=== PATIENT | female | born 1985 | race Caucasian/White ===

== ENCOUNTER 2021-11-24 12:06 | Emergency (ER) | payer OTHER ==
[~2021-11-24] VITALS: Ht 157.4 cm; Wt 60.7 kg
--- NOTE | 2021-11-24 12:18 | ED General ---
General Chief Complaint: Dizziness/Syncope Stated Complaint: DIZZINESS History of Present Illness Date Seen by Provider: Nov 24, 2021 Time Seen by Provider: 12:18 Initial Comments 36-year-old female presents with dizziness. She reports start about an hour hour and a half prior to arrival. She reports that she had sat down just got really dizzy. It gets worse with movement or when she stands. She does not have any nausea or vomiting. She does report that she has had couple days of diarrhea. No cough, sore throat, shortness of breath, fever or chills. She took a COVID test at home that was negative. She denies any fever or chills. She reports her last menstrual period ended about a week ago. Allergies and Home Medications Allergies Coded Allergies: No Known Drug Allergies (Unverified , 11/24/21) Patient Home Medication List Home Medication List Reviewed: Yes Review of Systems Review of Systems Constitutional: No chills; dizziness; No fever, No weakness EENTM: No ear pain Respiratory: No cough, No short of breath Cardiovascular: No chest pain, No palpitations Gastrointestinal: No abdominal pain; diarrhea; No nausea Musculoskeletal: no symptoms reported Skin: no symptoms reported Psychiatric/Neurological: No Symptoms Reported Hematologic/Lymphatic: No Symptoms Reported Physical Exam Vital Signs Vital Signs - First Documented 11/24/21 12:13 Temp 36.7 Pulse 52 Resp 18 B/P (MAP) 94/56 (69) Pulse Ox 100 O2 Delivery Room Air Capillary Refill : Height, Weight, BMI Height: '" Weight: lbs. oz. kg; BMI Method: General Appearance: No Apparent Distress, WD/WN Neck: Non Tender, Supple Respiratory: Normal Breath Sounds, No Accessory Muscle Use, No Respiratory Distress Cardiovascular: Regular Rate, Rhythm, No Edema Gastrointestinal: Non Tender, Soft Extremity: Normal Capillary Refill, Normal Inspection, Normal Range of Motion Neurologic/Psychiatric: Alert, Oriented x3, No Motor/Sensory Deficits, Normal Mood/Affect, quantitative analyst II-XII Norm as Tested Skin: Normal Color, Warm/Dry Lymphatic: No Adenopathy Progress/Results/Core Measures Suspected Sepsis SIRS Temperature: Pulse: Respiratory Rate: Laboratory Tests 11/24/21 12:40: White Blood Count 4.4 Blood Pressure / Mean: Laboratory Tests 11/24/21 12:40: Creatinine 0.49L, Platelet Count 356, Total Bilirubin 0.3 Results/Orders Lab Results Laboratory Tests Test 11/24/21 12:14 11/24/21 12:40 Range/Units Urine Color YELLOW Urine Clarity CLOUDY Urine pH 8.0 5-9 Urine Specific [place] 1.020 1.016-1.022 Urine Protein NEGATIVE NEGATIVE Urine Glucose (UA) NEGATIVE NEGATIVE Urine Ketones NEGATIVE NEGATIVE Urine Nitrite NEGATIVE NEGATIVE Urine Bilirubin NEGATIVE NEGATIVE Urine Urobilinogen 0.2 < = 1.0 MG/DL Urine Leukocyte Esterase NEGATIVE NEGATIVE Urine RBC (Auto) NEGATIVE NEGATIVE Urine RBC NONE /HPF Urine WBC NONE /HPF Urine Squamous Epithelial Cells 0-2 /HPF Urine Crystals PRESENT H /LPF Urine Amorphous Sediment FEW KENRICK PHOSPHATE H /LPF Urine Bacteria FEW H /HPF Urine Casts NONE /LPF Urine Mucus SMALL H /LPF Urine Culture Indicated NO Urine Test NEGATIVE NEGATIVE White Blood Count 4.4 4.3-11.0 10^3/uL Red Blood Count 4.24 3.80-5.11 10^6/uL Hemoglobin 12.4 11.5-16.0 g/dL Hematocrit 37 35-52 % Mean Corpuscular Volume 86 80-99 fL Mean Corpuscular Hemoglobin 29 25-34 pg Mean Corpuscular Hemoglobin Concent 34 32-36 g/dL Red Cell Distribution Width 12.3 10.0-14.5 % Platelet Count 356 130-400 10^3/uL Mean Platelet Volume 9.7 9.0-12.2 fL Immature Granulocyte % (Auto) 0 % Neutrophils (%) (Auto) 47 42-75 % Lymphocytes (%) (Auto) 39 12-44 % Monocytes (%) (Auto) 8 0-12 % Eosinophils (%) (Auto) 3 0-10 % Basophils (%) (Auto) 2 0-10 % Neutrophils # (Auto) 2.1 1.8-7.8 10^3/uL Lymphocytes # (Auto) 1.7 1.0-4.0 10^3/uL Monocytes # (Auto) 0.3 0.0-1.0 10^3/uL Eosinophils # (Auto) 0.1 0.0-0.3 10^3/uL Basophils # (Auto) 0.1 0.0-0.1 10^3/uL Immature Granulocyte # (Auto) 0.0 0.0-0.1 10^3/uL Sodium Level 137 135-145 MMOL/L Potassium Level 3.8 3.6-5.0 MMOL/L Chloride Level 104 98-107 MMOL/L Carbon Dioxide Level 23 21-32 MMOL/L Anion Gap 10 5-14 MMOL/L Blood Urea Nitrogen 7 7-18 MG/DL Creatinine 0.49 L 0.60-1.30 MG/DL Estimat Glomerular Filtration Rate 127 BUN/Creatinine Ratio 14 Glucose Level 118 H 70-105 MG/DL Calcium Level 8.8 8.5-10.1 MG/DL Corrected Calcium 8.5 8.5-10.1 MG/DL Total Bilirubin 0.3 0.1-1.0 MG/DL Aspartate Amino Transf (AST/SGOT) 15 5-34 U/L Alanine Aminotransferase (ALT/SGPT) 10 0-55 U/L Alkaline Phosphatase 56 40-136 U/L Total Protein 6.6 6.4-8.2 GM/DL Albumin 4.4 3.2-4.5 GM/DL My Orders Orders - ASHER,BRETT L DO Cbc With Automated Diff (11/24/21 12:26) Comprehensive Metabolic Panel (11/24/21 12:26) Hcg,Qualitative Urine (11/24/21 12:26) Ua Culture If Indicated (11/24/21 12:26) Ekg Tracing (11/24/21 12:26) Orthostatic Vital Signs (Adult (11/24/21 12:26) Lactated Ringers (Lr 1000 Ml Iv Solution (11/24/21 12:26) Meclizine Tablet (Antivert Tablet) (11/24/21 12:30) Medications Given in ED Current Medications Medications Dose Ordered Sig/Tiffanie Route Start Time Stop Time Status Last Admin Dose Admin Meclizine HCl 25 mg ONCE ONCE PO 11/24/21 12:30 11/24/21 12:31 DC 11/24/21 12:41 25 MG Vital Signs/I&O 11/24/21 12:13 Temp 36.7 Pulse 52 Resp 18 B/P (MAP) 94/56 (69) Pulse Ox 100 O2 Delivery Room Air Capillary Refill : Progress Note : Progress Note Patient's symptoms are seemingly improved following IV fluids and meclizine. Patient is stable otherwise with no acute findings on labs. Discussed with her is likely a combination of may be some benign positional vertigo along with some mild dehydration recommend that she drink plenty of fluids. She can use [id number] Antivert or meclizine. Patient stable discharged home ECG Initial ECG Impression Date: Nov 24, 2021 Initial ECG Impression Time: 12:41 Initial ECG Rate: 56 Initial ECG Rhythm: S.Anand Initial ECG Impression: Sinus Bradycardia Comment No acute ST changes or ST elevation Departure Impression Primary Impression: Vertigo Disposition: 01 HOME, SELF-CARE Condition: Stable Departure-Patient Inst. Referrals: KILLIAN PASCAL APRN (PCP) Primary Care Physician TRACI REYNOSO DO (Family) Primary Care Physician Patient Instructions: Vertigo (a Type of Dizziness) (DC) Add. Discharge Instructions: Be sure to drink plenty of fluids You may use [id number] Antivert, meclizine as needed. Use as directed on package All discharge instructions reviewed with patient and/or family. Voiced understanding. BRETT ASHER DO Nov 24, 2021 12:18
[2021-11-24] MEDS ORDERED: LACTATED RINGERS 1,000 ML IV STA (12:26)
[2021-11-24] MEDS ORDERED: MECLIZINE 25 MG (ANTIVERT) TAB PO ONE (12:30)
[2021-11-24 12:35] LABS: BILIRUBIN,URINE NEGATIVE (NEGATIVE); CLARITY,URINE CLOUDY; COLOR,URINE YELLOW; GLUCOSE, URINE (UA) NEGATIVE (NEGATIVE); KETONES,URINE NEGATIVE (NEGATIVE); LEUKOCYTE ESTERASE ,URINE NEGATIVE (NEGATIVE); NITRITE,URINE NEGATIVE (NEGATIVE); PROTEIN,URINE NEGATIVE (NEGATIVE)
[2021-11-24 12:45] LABS: AMORPHOUS SEDIMENT,UR FEW AMOR PHOSPHATE /LPF; BACTERIA,URINE FEW /HPF; SQUAMOUS EPITHELIAL CELL,UR 0-2 /HPF
[2021-11-24 12:54] LABS: BASOPHILS # (AUTO) 0.1 10^3/uL (0.0-0.1); BASOPHILS % (AUTO) 2 % (0-10); EOSINOPHILS # (AUTO) 0.1 10^3/uL (0.0-0.3); EOSINOPHILS % (AUTO) 3 % (0-10); HEMATOCRIT 37 % (35-52); HEMOGLOBIN 12.4 g/dL (11.5-16.0); LYMPHOCYTES # (AUTO) 1.7 10^3/uL (1.0-4.0); LYMPHOCYTES % (AUTO) 39 % (12-44); MEAN CORPUSCULAR HEMOGLOBIN 29 pg (25-34); MEAN CORPUSCULAR HGB CONC 34 g/dL (32-36); MEAN CORPUSCULAR VOLUME 86 fL (80-99); MEAN PLATELET VOLUME 9.7 fL (9.0-12.2); MONOCYTES # (AUTO) 0.3 10^3/uL (0.0-1.0); MONOCYTES % (AUTO) 8 % (0-12); NEUTROPHILS # (AUTO) 2.1 10^3/uL (1.8-7.8); NEUTROPHILS % (AUTO) 47 % (42-75); PLATELET COUNT 356 10^3/uL (130-400); WHITE BLOOD COUNT 4.4 10^3/uL (4.3-11.0)
[2021-11-24 13:27] LABS: BILIRUBIN,TOTAL 0.3 MG/DL (0.1-1.0); CALCIUM 8.8 MG/DL (8.5-10.1); CREATININE SERUM 0.49 MG/DL (0.60-1.30); POTASSIUM 3.8 MMOL/L (3.6-5.0)
[2021-11-24 13:28] LABS: ALBUMIN 4.4 GM/DL (3.2-4.5); TOTAL PROTEIN 6.6 GM/DL (6.4-8.2)
[2021-11-24 13:48] VITALS: BP 105/62
== END 2021-11-24 13:47 | disposition home or self-care (01) ==
LOC: ER FS 12:09
DX: R42 Dizziness and giddiness (principal); Z28.310 Unvaccinated for COVID-19
CPT/HCPCS: 36415; 80053; 81000; 84703; 85025; 93005

== ENCOUNTER → 2022-06-07 | Outpatient (CLI) | payer OTHER | LOC: LABNPT 12:44 | PROVIDERS: ATTEND Registered Nurse Emergency | DX: N89.8 Other specified noninflammatory disorders of vagina (principal) | CPT/HCPCS: 87210; 87491; 87591 ==

== ENCOUNTER 2022-06-13 18:40 | Emergency (ER) | payer OTHER ==
[~2022-06-13] VITALS: Ht 160 cm; Wt 43.6 kg
[2022-06-13 19:17] LABS: BILIRUBIN,URINE NEGATIVE (NEGATIVE); CLARITY,URINE CLEAR; COLOR,URINE YELLOW; GLUCOSE, URINE (UA) NEGATIVE (NEGATIVE); KETONES,URINE 1+ (NEGATIVE); LEUKOCYTE ESTERASE ,URINE TRACE (NEGATIVE); NITRITE,URINE NEGATIVE (NEGATIVE); PROTEIN,URINE NEGATIVE (NEGATIVE)
[2022-06-13 19:23] LABS: BACTERIA,URINE TRACE /HPF
--- NOTE | 2022-06-13 19:26 | ED GU-Female ---
General Chief Complaint: - Reproductive Stated Complaint: BACK PAIN/VAG BURNING/FATIGUE Nursing Triage Note: Patient states 1 mo ago states urinary problems, back pain, fatigue, states seen a physician diagnosed with yeast infection, STD negative, diagnosed with BV treatment for that. Was exposed to Strept B in march. Source: patient Exam Limitations: no limitations History of Present Illness Date Seen by Provider: Jun 13, 2022 Time Seen by Provider: 19:13 Initial Comments 36-year-old female presents to the ED with reports of burning in groin area, lower back pain, shivering, and loss of appetite. States problem started with burning with urination and wiping 35 days ago. She states she was seen a doctor 3 times for this. Reports of burning with urination has improved, but still has vaginal burning all the time. States she was diagnosed with BV and completed the full course of vaginal Flagyl 2 days ago. Her doctor also treated her for yeast infection, although she was negative for yeast infection. She also reports that she is thirsty all the time, and is constantly drinking water. Denies fevers, chest pain, shortness of air, abdominal pain, nausea, vomiting. Had a normal bowel movement this morning. Last menstrual cycle was May 18, states her cycles are every 31 days. Denies any vaginal bleeding or discharge. Denies dysuria. Denies hematuria. She reports she has 1 sexual partner, and is in a monogamous relationship. She is not concerned about STDs. States she was recently checked for gonorrhea and chlamydia and it was negative. Allergies and Home Medications Allergies Coded Allergies: No Known Drug Allergies (Unverified , 11/24/21) Patient Home Medication List Home Medication List Reviewed: Yes Doxycycline Hyclate (Doxycycline Hyclate) 100 Mg Tablet, 100 MG PO BID Prescribed by: Tracie Vegas on 06/13/222149 Fluconazole (Diflucan) 150 Mg Tablet, 150 MG PO ONCE Prescribed by: Tracie Vegas on 06/13/222149 Metronidazole (Metronidazole) 500 Mg Tablet, 500 MG PO BID Prescribed by: Tracie Vegas on 06/13/222149 Review of Systems Review of Systems Constitutional: see HPI Past [id number]-[id number] Hx Immunizations Up To Date Influenza Vaccine Up-to-Date: No; Not Current First/Initial COVID19 Vaccinat: Not currently vaccinated Second COVID19 Vaccination Lev: Not currently vaccinated Third COVID19 Vaccination Date: Not currently vaccinated Past Medical History Surgery/Hospitalization HX: Cholecysectomy Last Menstrual Period: May 18, 2022 Physical Exam Vital Signs Vital Signs - First Documented 06/13/22 18:52 Temp 36.8 Pulse 90 Resp 20 B/P (MAP) 106/62 (77) Pulse Ox 100 O2 Delivery Room Air Capillary Refill : Less Than 3 Seconds Height, Weight, BMI Height: '" Weight: lbs. oz. kg; 17.00 BMI Method: General Appearance: WD/WN, no apparent distress Neck: supple, normal inspection Cardiovascular: regular rate, rhythm, no edema, no gallop, no JVD, no murmur Respiratory: lungs clear, normal breath sounds, no respiratory distress, no accessory muscle use Gastrointestinal: normal bowel sounds, non tender, soft, no organomegaly, no pulsatile mass Pelvic: discharge (White chunky, could be vaginal Flagyl), other (Erythemic cervix) Extremities: normal range of motion, normal inspection Neurologic/Psychiatric: alert, normal mood/affect Skin: normal color, warm/dry Progress/Results/Core Measures Suspected Sepsis SIRS Temperature: Pulse: 90 Respiratory Rate: 20 Laboratory Tests 06/13/22 19:30: White Blood Count 5.0 Blood Pressure 106 /62 Mean: 77 Laboratory Tests 06/13/22 19:30: Platelet Count 328 06/13/22 19:55: Creatinine 0.59L, Total Bilirubin 0.4 Results/Orders Lab Results Laboratory Tests Test 06/13/22 19:09 06/13/22 19:30 06/13/22 19:55 06/13/22 21:05 Range/Units Urine Color YELLOW Urine Clarity CLEAR Urine pH 6.0 5-9 Urine Specific [place] <=1.005 1.016-1.022 Urine Protein NEGATIVE NEGATIVE Urine Glucose (UA) NEGATIVE NEGATIVE Urine Ketones 1+ H NEGATIVE Urine Nitrite NEGATIVE NEGATIVE Urine Bilirubin NEGATIVE NEGATIVE Urine Urobilinogen 0.2 < = 1.0 MG/DL Urine Leukocyte Esterase TRACE H NEGATIVE Urine RBC (Auto) NEGATIVE NEGATIVE Urine RBC NONE /HPF Urine WBC NONE /HPF Urine Squamous Epithelial Cells NONE /HPF Urine Crystals NONE /LPF Urine Bacteria TRACE /HPF Urine Casts NONE /LPF Urine Mucus NEGATIVE /LPF Urine Culture Indicated NO White Blood Count 5.0 4.3-11.0 10^3/uL Red Blood Count 4.26 3.80-5.11 10^6/uL Hemoglobin 12.5 11.5-16.0 g/dL Hematocrit 37 35-52 % Mean Corpuscular Volume 87 80-99 fL Mean Corpuscular Hemoglobin 29 25-34 pg Mean Corpuscular Hemoglobin Concent 34 32-36 g/dL Red Cell Distribution Width 12.5 10.0-14.5 % Platelet Count 328 130-400 10^3/uL Mean Platelet Volume 9.8 9.0-12.2 fL Immature Granulocyte % (Auto) 0 % Neutrophils (%) (Auto) 45 42-75 % Lymphocytes (%) (Auto) 41 12-44 % Monocytes (%) (Auto) 9 0-12 % Eosinophils (%) (Auto) 3 0-10 % Basophils (%) (Auto) 2 0-10 % Neutrophils # (Auto) 2.3 1.8-7.8 10^3/uL Lymphocytes # (Auto) 2.1 1.0-4.0 10^3/uL Monocytes # (Auto) 0.4 0.0-1.0 10^3/uL Eosinophils # (Auto) 0.2 0.0-0.3 10^3/uL Basophils # (Auto) 0.1 0.0-0.1 10^3/uL Immature Granulocyte # (Auto) 0.0 0.0-0.1 10^3/uL Sodium Level 138 135-145 MMOL/L Potassium Level 3.7 3.6-5.0 MMOL/L Chloride Level 106 98-107 MMOL/L Carbon Dioxide Level 21 21-32 MMOL/L Anion Gap 11 5-14 MMOL/L Blood Urea Nitrogen 6 L 7-18 MG/DL Creatinine 0.59 L 0.60-1.30 MG/DL Estimat Glomerular Filtration Rate 121 BUN/Creatinine Ratio 10 Glucose Level 84 70-105 MG/DL Calcium Level 9.0 8.5-10.1 MG/DL Corrected Calcium 8.8 8.5-10.1 MG/DL Total Bilirubin 0.4 0.1-1.0 MG/DL Aspartate Amino Transf (AST/SGOT) 18 5-34 U/L Alanine Aminotransferase (ALT/SGPT) 18 0-55 U/L Alkaline Phosphatase 37 L 40-136 U/L Total Protein 6.8 6.4-8.2 GM/DL Albumin 4.3 3.2-4.5 GM/DL Micro Results Microbiology 06/13/22 Wet Prep - Final, Complete My Orders Orders - TRACIE VEGAS APRN Ua Culture If Indicated (06/13/22 19:04) Urine Bedside (06/13/22 19:04) Comprehensive Metabolic Panel (06/13/22 19:20) Ed Iv/Invasive Line Start (06/13/22 19:20) Cbc With Automated Diff (06/13/22 19:20) Wet Prep (06/13/22 20:54) Neisseria Gonorrhea Swab (06/13/22 20:54) Chlamydia Trachomatis Swab (06/13/22 20:54) Ceftriaxone (Rocephin) (06/13/22 21:45) Lidocaine 1% Inj 20 Ml (Xylocaine 1% Inj (06/13/22 21:45) Doxycycline Hyclate Tablet (Vibramycin T (06/13/22 21:45) Metronidazole Tablet (Flagyl Tablet) (06/13/22 21:45) Fluconazole Tablet (Ed Only) (Diflucan T (06/13/22 21:45) Lidocaine 1% Inj 10 Ml (Xylocaine 1% Inj (06/13/22 22:11) Medications Given in ED Vital Signs/I&O Capillary Refill : Less Than 3 Seconds Blood Pressure Mean: 77 Progress Note #1: Time: 19:30 Progress Note Patient seen and evaluated, resting comfortably in recliner, no acute distress. Based on exam and symptoms, work-up initiated including CBC, CMP, UA, urine . Progress Note #2: Time: 20:30 Progress Note Labs reviewed. CBC grossly normal, white blood cell 5.0. CMP mostly normal, potassium 3.7, creatinine 0.59, glucose 84. UA positive for 1+ ketones, trace leuks, no WBC, trace bacteria. Do not believe this is a urinary tract infection. Results discussed with patient. Will perform pelvic exam. Progress Note #3: Time: 21:40 Progress Note Wet prep shows few day BCs, no clue cells few yeast, no trichomonas. Cervix is erythemic. Due to systemic symptoms of lower back pain and chills, will treat for PID and yeast infection. Will give first dose of antibiotics now and Diflucan. Will discharge with doxycycline and Flagyl and repeat dose of Diflucan if symptoms not improved. Discharge instructions and return precautions provided. Departure Impression Primary Impression: Cervicitis Additional Impressions: Acute pelvic inflammatory disease Vulvovaginal candidiasis Disposition: 01 HOME, SELF-CARE Condition: Stable Departure-Patient Inst. Decision time for Depature: 21:46 Referrals: ALAN MALONE MD (PCP) Primary Care Physician CORDELL BLANCO APRN (Family) Primary Care Physician Patient Instructions: Pelvic Inflammatory Disease, Yeast Infection (DC) Add. Discharge Instructions: Complete full course of antibiotic, even begin to feel better. Take the Diflucan after 72 hours, if the burning does not improve. Follow-up with [facility]. Return for uncontrolled pain, fever, recurrent vomiting, or any other new, concerning, or worsening symptoms. All discharge instructions reviewed with patient and/or family. Voiced understanding. Scripts Metronidazole (Metronidazole) 500 Mg Tablet 500 MG PO BID for 14 Days, #27 TAB 0 Refills Prov: TRACIE VEGAS APRN 06/13/22 Doxycycline Hyclate (Doxycycline Hyclate) 100 Mg Tablet 100 MG PO BID for 14 Days, #27 TAB 0 Refills Prov: TRACIE VEGAS APRN 06/13/22 Fluconazole (Diflucan) 150 Mg Tablet 150 MG PO ONCE, #1 TAB 0 Refills Prov: TRACIE VEGAS APRN 06/13/22 TRACIE VEGAS APRN Jun 13, 2022 19:26
[2022-06-13 19:36] LABS: BASOPHILS # (AUTO) 0.1 10^3/uL (0.0-0.1); BASOPHILS % (AUTO) 2 % (0-10); EOSINOPHILS # (AUTO) 0.2 10^3/uL (0.0-0.3); EOSINOPHILS % (AUTO) 3 % (0-10); HEMATOCRIT 37 % (35-52); HEMOGLOBIN 12.5 g/dL (11.5-16.0); LYMPHOCYTES # (AUTO) 2.1 10^3/uL (1.0-4.0); LYMPHOCYTES % (AUTO) 41 % (12-44); MEAN CORPUSCULAR HEMOGLOBIN 29 pg (25-34); MEAN CORPUSCULAR HGB CONC 34 g/dL (32-36); MEAN CORPUSCULAR VOLUME 87 fL (80-99); MEAN PLATELET VOLUME 9.8 fL (9.0-12.2); MONOCYTES # (AUTO) 0.4 10^3/uL (0.0-1.0); MONOCYTES % (AUTO) 9 % (0-12); NEUTROPHILS # (AUTO) 2.3 10^3/uL (1.8-7.8); NEUTROPHILS % (AUTO) 45 % (42-75); PLATELET COUNT 328 10^3/uL (130-400)
[2022-06-13 20:20] LABS: ALBUMIN 4.3 GM/DL (3.2-4.5); BILIRUBIN,TOTAL 0.4 MG/DL (0.1-1.0); CREATININE SERUM 0.59 MG/DL (0.60-1.30); POTASSIUM 3.7 MMOL/L (3.6-5.0); TOTAL PROTEIN 6.8 GM/DL (6.4-8.2)
[2022-06-13] MEDS ORDERED: DOXYCYCLINE 100 MG (VIBRAMYCIN) TABLET PO ONE (21:45)
[2022-06-13] MEDS ORDERED: metroNIDAZOLE 500 MG (FLAGYL) TAB PO ONE (21:45)
[2022-06-13] MEDS ORDERED: LIDOCAINE 1% INJ 20 ML VIAL INJ ONE (21:45)
[2022-06-13] MEDS ORDERED: cefTRIAXone 250 MG/2.5 ML ML IM ONE (21:45)
[2022-06-13] MEDS ORDERED: FLUCONAZOLE 150 MG TABLET (ED ONLY) PO ONE (21:45)
[2022-06-13] MEDS ORDERED: METR-145 PO (21:50)
[2022-06-13] MEDS ORDERED: DOXY100T2 PO (21:50)
[2022-06-13] MEDS ORDERED: FLUC150T PO (21:50)
[2022-06-13] MEDS ORDERED: LIDOCAINE 1% INJ 10 ML VIAL ONE (22:11)
[2022-06-13 22:47] VITALS: BP 110/72
== END 2022-06-13 22:47 | disposition home or self-care (01) ==
LOC: EDUNIT# 18:40 → ER 18:42
DX: N72 Inflammatory disease of cervix uteri (principal); N73.0 Acute parametritis and pelvic cellulitis; B37.31 Acute candidiasis of vulva and vagina; Z28.310 Unvaccinated for COVID-19
CPT/HCPCS: 36415; 80053; 81000; 84703; 85025; 87210; 87491; 87591